=== PATIENT | male | born 2000 | race Caucasian/White ===

== ENCOUNTER 2019-08-14 01:41 | Emergency (ER) | payer MEDICAID ==
[2019-08-14 02:08] LABS: ABS Eosinophils 0.1 10^3/ul (0-0.6); ABS Lymphocytes 2.5 10^3/ul (1.0-4.8); ABS Monocytes 0.7 10^3/ul (0-0.8); ABS Neutrophils 4.2 10^3/ul (1.5-7.7); Eosinophil % 1.4 %; Hematocrit 43 % (42-52); Hemoglobin 15.2 g/dL (14.0-18.0); Lymphocyte % 32.9 %; Mean Corpuscular HGB Conc 35 g/dL (31-36); Mean Corpuscular Hemoglobin 31 pg (27-31); Mean Corpuscular Volume 87 fL (80-94); Mean Platelet Volume 8.8 fL (7.4-10.4); Nucleated Red Blood Cells % 0.1; Platelet Count 179 10^3/uL (150-450); Red Blood Count 4.93 10^6 /uL (4.18-5.48); Red Cell Distribution Width 13 % (10-15); White Blood Count 7.5 10^3/uL (3.5-10.8)
[2019-08-14 02:27] LABS: ALT 20 U/L (7-52); AST 26 U/L (13-39); Albumin 4.4 g/dL (3.2-5.2); Albumin/Globulin Ratio 1.4 (1-3); Alkaline Phosphatase 49 U/L (34-104); Anion Gap 8 mmol/L (2-11); Blood Urea Nitrogen 26 mg/dL (6-24); CO2 Carbon Dioxide 27 mmol/L (22-32); Chloride 106 mmol/L (101-111); EGFR African American 95.2 (>60); EGFR Non-African American 78.7 (>60); Globulin 3.1 g/dL (2-4); Glucose 89 mg/dL (70-100); Potassium 3.9 mmol/L (3.5-5.0); Sodium 141 mmol/L (135-145); Total Protein 7.5 g/dL (6.4-8.9)
[2019-08-14 02:33] LABS: Acetaminophen < 15 mcg/mL; Alcohol 224 mg/dL (<10); Salicylate < 2.50 mg/dL (<30)
--- NOTE | 2019-08-14 03:28 | ED ---
Substance Abuse/Use - HPI Summary HPI Summary: The pt is an 18 yr old male presenting to [facility] c/o EtOH intoxication. EMS says friend report they were drinking excessively earlier today and called EMS because he had some SI without plan. LEVEL 5 caveat, pt is unable to provide full history due to intoxication. He does admit to SI. - History Of Current Complaint Chief Complaint: EDSuicidal Stated Complaint: 941 PER EMS Hx Obtained From: Patient Hx From Patient Unobtainable Due To: Other - LEVEL 5 caveat, pt is unable to provide full history due to intoxication. Ingestion History: Type/Name Of Drug - alcohol Overdose Characteristics: Oral Associated Signs And Symptoms: Other: - pos - SI without plan - Allergies/Home Medications Home Medications: Home Medications NK [No Home Medications Reported] 08/14/19 [History Confirmed 08/14/19] PMH/Surg Hx/FS Hx/Imm Hx - Surgical History Surgical History: Unable to Obtain/Confirm - LEVEL 5 caveat, pt is unable to provide full history due to intoxication. - Immunization History Immunizations Up to Date: Yes Infectious Disease History: No Infectious Disease History: Denies: Traveled Outside the [place] in Last 30 Days - Family History Family History: LEVEL 5 caveat, pt is unable to provide full history due to intoxication. - Social History Alcohol Use: Weekly Alcohol Amount: 6 shots Substance Use Type: Reports: None Smoking Status (MU): Never Smoked Tobacco Review of Systems Psychological: Other - pos - SI without plan All Other Systems Reviewed And Are Negative: No - Comments Additional Review of Systems Comments: LEVEL 5 caveat, pt is unable to provide full history due to intoxication. Physical Exam - Summary Physical Exam Summary: General: This is a well-developed, well- nourished young man lying on the stretcher in no apparent distress. The patient does not appear ill or toxic. Neck: No obvious swellings. Lungs: There are no signs of respiratory distress. Coronary: Peripheral perfusion is good. Abdomen: The abdomen appears normal and is nondistended. Genitourinary: Deferred Back: Good range of motion is observed. Extremities: Good range of motion was observed in all 4 extremities. There is no sign of any trauma to the extremities. Neurologic: The patient is awake and alert, speech is fluent and minimally slurred, and conversation is appropriate. Psychiatric: The patients affect is felt to be inappropriate in that he expresses SI while smiling and laughing. There is no sign of any hallucinations or delusions, or any other signs of psychosis. Triage Information Reviewed: Yes Vital Signs On Initial Exam: Initial Vitals Temp Pulse Resp BP Pulse Ox 97.9 F 84 18 118/70 96 08/14/19 01:49 08/14/19 01:49 08/14/19 01:49 08/14/19 01:49 08/14/19 01:49 Vital Signs Reviewed: Yes Completion Of Physical Exam Limited Due To: Level 5 - LEVEL 5 caveat, pt is unable to provide full history due to intoxication. Procedures - Sedation Patient Received Moderate/Deep Sedation with Procedure: No Diagnostics - Vital Signs Vital Signs Temp Pulse Resp BP Pulse Ox 08/14/19 01:49 97.9 F 84 18 118/70 96 - Laboratory Lab Results: Lab Results 08/14/19 08/14/19 Range/Units 02:01 02:01 WBC 7.5 (3.5-10.8) 10^3/uL RBC 4.93 (4.18-5.48) 10^6 /uL Hgb 15.2 (14.0-18.0) g/dL Hct 43 (42-52) % MCV 87 (80-94) fL MCH 31 (27-31) pg MCHC 35 (31-36) g/dL RDW 13 (10-15) % Plt Count 179 (150-450) 10^3/uL MPV 8.8 (7.4-10.4) fL Neut % (Auto) 55.8 % Lymph % (Auto) 32.9 % [place] % (Auto) 9.3 % Eos % (Auto) 1.4 % Baso % (Auto) 0.6 % Absolute Neuts (auto) 4.2 (1.5-7.7) 10^3/ul Absolute Lymphs (auto) 2.5 (1.0-4.8) 10^3/ul Absolute Monos (auto) 0.7 (0-0.8) 10^3/ul Absolute Eos (auto) 0.1 (0-0.6) 10^3/ul Absolute Basos (auto) 0.0 (0-0.2) 10^3/ul Absolute Nucleated RBC 0.0 10^3/ul Nucleated RBC % 0.1 Sodium 141 (135-145) mmol/L Potassium 3.9 (3.5-5.0) mmol/L Chloride 106 (101-111) mmol/L Carbon Dioxide 27 (22-32) mmol/L Anion Gap 8 (2-11) mmol/L BUN 26 H (6-24) mg/dL Creatinine 1.18 H (0.67-1.17) mg/dL Est GFR ( Amer) 95.2 (>60) Est GFR (Non-Af Amer) 78.7 (>60) BUN/Creatinine Ratio 22.0 H (8-20) Glucose 89 (70-100) mg/dL Calcium 9.0 (8.6-10.3) mg/dL Total Bilirubin 0.40 (0.2-1.0) mg/dL AST 26 (13-39) U/L ALT 20 (7-52) U/L Alkaline Phosphatase 49 (34-104) U/L Total Protein 7.5 (6.4-8.9) g/dL Albumin 4.4 (3.2-5.2) g/dL Globulin 3.1 (2-4) g/dL Albumin/Globulin Ratio 1.4 (1-3) TSH 2.90 (0.34-5.60) mcIU/mL Salicylates < 2.50 (<30) mg/dL Acetaminophen < 15 mcg/mL Serum Alcohol 224 H (<10) mg/dL Result Diagrams: 08/14/19 02:01 08/14/19 02:01 Lab Statement: Any lab studies that have been ordered have been reviewed, and results considered in the medical decision making process. Course/Dx - Course Course Of Treatment: The pt is an 89 yr old male presenting to [facility] c/o EtOH intoxication. They were drinking excessively earlier today and had some SI without plan. LEVEL 5 caveat, pt is unable to provide full history due to intoxication. Pt will be a sign out to Dr. Escalona at the 08/14/2019 0700 shift change pending sobriety and disposition. - Diagnoses Provider Diagnoses: Alcohol intoxication, Suicidal ideation Discharge ED - Sign-Out/Discharge Documenting (check all that apply): Sign-Out Patient - pt will be a sign out to Dr. Escalona at the 08/14/2019 0700 shift change pending sobriety and disposition. Signing out patient TO: Dani Escalona - Discharge Plan Condition: Good Disposition: HOME Patient Education Materials: Alcohol Intoxication (ED) Referrals: [facility] - René ARRIAGA [Primary Care Provider] - - Billing Disposition and Condition Condition: GOOD Disposition: Home - Attestation Statements Document Initiated by Angella: Yes Documenting Scribe: Vik Steven Provider For Whom Angella is Documenting (Include Credential): Nadeem Kelsey MD Scribe Attestation: IVik, scribed for Nadeem Kelsey MD on 08/16/19 at 1619. Scribe Documentation Reviewed: Yes Provider Attestation: The documentation as recorded by the Vik padron accurately reflects the service I personally performed and the decisions made by me, Nadeem Kelsey MD Status of Scribe Document: Viewed
[2019-08-14 04:30] LABS: Urine Appearance Clear; Urine Bilirubin Negative (Negative); Urine Blood 1+ (Negative); Urine Color Straw; Urine Glucose Negative (Negative); Urine Ketones Negative (Negative); Urine Nitrite Negative (Negative); Urine Protein Negative (Negative); Urine Specific Gravity 1.009 (1.010-1.030); Urine Urobilinogen Negative (Negative)
[2019-08-14 04:33] LABS: Urine Bacteria Absent (Absent); Urine Red Blood Cell Trace(0-2/hpf) (Absent); Urine White Blood Cell Absent (Absent)
[2019-08-14 04:45] LABS: Urine Benzodiazepine Screen None Detected (None Detect); Urine Opiates Screen None Detected (None Detect)
--- NOTE | 2019-08-14 07:26 | ED ---
Progress - Progress Note Progress Note: Dr. Escalona receives patient as sign-out from Dr. Kelsey at 0700 08/14/19 pending sobriety. Course/Dx - Course Course Of Treatment: Pt is a sign out to Dr. Escalona at the 08/14/[address] Kelsey pending sobriety and disposition. Serum Alcohol is 224 H. Pt sober, awake, alert, denies SI, states has a puppy at home and requesting discharge. Pt was offered mental health evalaution however pt denies SI and is comfortable with discharge home. Pt will be discharged with diagnosis of alcohol intoxication and will follow up with [facility]. - Diagnoses Provider Diagnoses: Alcohol intoxication Discharge ED - Sign-Out/Discharge Documenting (check all that apply): Patient Departure - discharge - Discharge Plan Condition: Good Disposition: HOME Patient Education Materials: Alcohol Intoxication (ED) Referrals: [facility] - MRRené [Primary Care Provider] - - Billing Disposition and Condition Condition: GOOD Disposition: Home - Attestation Statements Document Initiated by Lucilleibe: Yes Documenting Scribe: Radha Betancourt Provider For Whom Angella is Documenting (Include Credential): Javad CostaOJovain Scribe Attestation: Radha Jaramillo scribed for Dr. Abdulaziz Escalona D.O. on 08/14/19 at 1035. Scribe Documentation Reviewed: Yes Provider Attestation: The documentation as recorded by the Radha padron accurately reflects the service I personally performed and the decisions made by me, Dr. Abdulaziz Escalona D.O. Status of Scribe Document: Viewed
[2019-08-14 10:14] VITALS: BP 132/71
== END 2019-08-14 10:13 | disposition home or self-care (01) ==
LOC: ED 01:41
DX: F10.929 Alcohol use, unspecified with intoxication, unspecified (principal)
CPT/HCPCS: 36415; 80053; 80307; 80320; 80329; 81003; 81015; 84443; 85025; 99283; G0480